=== PATIENT | female | born 1925 | race Caucasian/White ===

== ENCOUNTER 2016-07-13 09:30 | Day surgery (SDC) | payer MEDICARE, OTHER ==
[~2016-07-13] VITALS: Ht 157.5 cm; Wt 54.4 kg
[~2016-07-13 09:30] MED LIST: DONE10TA42 PO; FOLI20CA PO; NAPR220C11 PO; Sodium Chloride LOK Flush 10 mL Syringe IV PRN; fentaNYL-PF 50 mCg/mL 2 mL Inj IVPUSH PRN
[2016-07-13 10:20] VITALS: PULSE 149; RESP 16; O2SAT 96
[2016-07-13] MEDS: 0.9% Sodium Chloride 1,000 ML IV PRN ×2 (10:29→10:51)
--- NOTE | 2016-07-13 11:24 | PCM.ENDCOL ---
Colonoscopy Date of Service: Jul 13, 2016 Physician Wyatt Strange MD Indication for Procedure Diarrhea Post Procedure Dx & Findings: Diverticula hemorrhoids Procedure Colonoscopy Prep fair Withdrawal 12 minutes PROCEDURE IN DETAIL: After unremarkable rectal examination with this videocolonoscope was inserted into patient's anal canal and advanced to the cecum. Scope further events the terminal ileum. Landmarks are identified including the ileocecal valve and the appendiceal orifice. Terminal ileum showed healthy mucosa with normal healthy- appearing villi. I advanced about 7 cm The mucosa of the cecum, ascending, transverse, descending, sigmoid, rectal mucosa lined with whitish, pink, smooth, glistening, normal-appearing mucosa, normal fine branching, underlying vascularity, normal haustra. The patient tolerated procedure and was transported to observation area. Random biopsies were obtained using cold forceps from cecum to the rectum. A spot in the descending colon bled persistently after a biopsy. Hemostatic metal clip deployed and bleeding stopped. Multiple diverticuli noted small to large mostly in the sigmoid colon. Beyond the sigmoid colon, diverticuli were scattered into the ascending colon. In the rectum retroflexion was done which showed hemorrhoids and anal canal was inspected carefully and the way out and hemorrhoids noted. Impression Diarrhea Normal terminal ileum Recommendation Await biopsy result Follow up in GI clinic Presedation Assessment Risks and Benefits Informed consent was obtained from the patient after all risks and benefits including but not limited to drug reaction, infection, pain, bleeding, perforation, as well as alternatives were discussed. Patient monitoring Continuous pulse oximetry, cardiac monitoring, blood pressure monitoring, IV access, and oxygen at 2L per nasal cannula. Periprocedural Fentanyl: Fentanyl 75mcg Incrementally Midazolam: Midazolam 3mg Incrementally Complications There were no periprocedural complications identified. Post Procedure Plan Post Procedure Recommendations 1. Restrict activities today. 2. Resume normal activities in the morning. 3. Resume medications. 4. Patient informed of normal post procedure side effects as bloating, drowsiness, blood streaking in the stool. 5. average risk CRCS. If colon polyps come back as: -Hyperplastic- can repeat colonoscopy in 10 years -Tubular adenoma- repeat colonoscopy in 5 years -Tubulovillous/villous adenoma- repeat colonoscopy in 3 years -If any dysplasia- return to clinic as soon as possible 6. Please don't hesitate to call me with any questions. Wyatt Strange MD Jul 13, 2016 11:24
[2016-07-13 11:25] VITALS: BP 158/85; PULSE 70; RESP 16; O2SAT 91
[2016-07-13 11:35] VITALS: BP 138/76; PULSE 56; PULSE 60; RESP 16; O2SAT 98; O2SAT 99
[2016-07-13 11:45] VITALS: BP 131/76; PULSE 59; RESP 16; O2SAT 95
--- NOTE | 2016-07-14 12:03 | PATH ---
SURGICAL PATHOLOGY Attending Physician:Wyatt Strange M.D. CASE STATUS: Signed Out PATIENT NAME: JULIA STYLES PID: [id number] : 1925 DATE COLLECTED:07/13/2016 20:19 SPECIMEN: Colon, Biopsy CLINICAL HISTORY: 1). RANDOM COLON BIOPSIES FINAL DIAGNOSIS: 1.RANDOM COLON BIOPSIES: COLONIC MUCOSA WITH NO DIAGNOSTIC ALTERATIONS. NEGATIVE FOR INFLAMMATION, DYSPLASIA AND MALIGNANCY. 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 Histologic changes of melanosis coli are not present in the current biopsies. GROSS DESCRIPTION: The specimen is received in one formalin filled container labeled with the patient's name, sublabeled "random colon" and consists of multiple fragments of tissue which aggregate to 0.6 x 0.6 x 0.3 CM. The specimen is entirely submitted in one cassette. 07/13/2016 [facility] MICRO DESCRIPTION: See diagnosis. ICD-9 CODES: CPT CODES: 1: 93684 Electronically Signed Out Gale Zuñiga MD [facility] [address], [place] [address] Technical component performed at [facility], [address] [place] [address] Ave[address], [place], [address]
[2016-11-06] MEDS ORDERED: RIFA550T3 PO (11:44)
== END 2016-07-13 23:59 | disposition home or self-care (01) ==
LOC: END 09:30
PROVIDERS: ATTEND Internal Medicine
DX: R19.7 Diarrhea, unspecified (principal); K57.30 Diverticulosis of large intestine without perforation or abscess without bleeding; K64.8 Other hemorrhoids; J45.909 Unspecified asthma, uncomplicated; I10 Essential (primary) hypertension; Z87.891 Personal history of nicotine dependence
CPT/HCPCS: 45380; J2250; J7030

== ENCOUNTER 2016-11-09 09:50 | Day surgery (SDC) | payer MEDICARE, OTHER ==
[~2016-11-09] VITALS: Ht 154.9 cm; Wt 50.0 kg
[~2016-11-09 09:50] MED LIST changes: +0.9% Sodium Chloride 1,000 ML IV SCH; +RIFA550T3 PO
[2016-11-09 10:43] VITALS: BP 134/95; PULSE 55; RESP 16; O2SAT 98
[2016-11-09] MEDS ORDERED: LISI-567 PO (10:46)
--- NOTE | 2016-11-09 12:06 | PCM.ENDEGD ---
EGD Date of Service: November 09, 2016 Physician Wyatt Strange MD Pre Procedure Diagnosis: Diarrhea Post Procedure Dx & Findings: Rule out celiac and gastritis Procedure Esophagogastroduodenoscopy PROCEDURE IN DETAIL: After proper sedation, Olympus video endoscope was inserted into patient's mouth and esophagus was successfully intubated. Scope introduced esophagus. Esophagus showed normal shiny whitish mucosa consistent with squamous cell component. Z line was intact at 39 cm from the incisors. Scope further advanced to the stomach. Stomach showed atrophic rugae folds with some atrophy in the antrum as well as some redness. Abscesses obtained. Cardia fundus body antrum pylorus were all visualized. Retroflexion was done. Stomach was easily inflated and deflatable using air. Scope further events to the distal duodenum. Duodenum revealed normal villous structures with normal appearing folds without any mass ulcer erosion. 5 biopsies obtained to rule out celiac disease. Impression Gastritis Normal-appearing duodenum Recommendation Follow up in GI clinic Presedation Assessment Risks and Benefits Informed consent was obtained from the patient after all risks and benefits including but not limited to drug reaction, infection, pain, bleeding, perforation, as well as alternatives were discussed. Patient monitoring Continuous pulse oximetry, cardiac monitoring, blood pressure monitoring, IV access, and oxygen at 2L per nasal cannula. Periprocedural Fentanyl: Fentanyl 25mcg Midazolam: Midazolam 1mg Incrementally Complications There were no periprocedural complications identified. Post Procedure Plan Post Procedure Recommendations 1. Restrict activities today. 2. Resume normal activities in the morning. 3. Resume medications. 4. GERD behavioral modification: - Avoid fatty, acidic, spicy, large meals - Do not lie down after meals - Do not eat or drink anything for at least 2 1/2 hours before going to bed at night - Discontinue tobacco and alcohol - Decrease or avoid caffeine - Avoid chocolate and mints - Decrease weight - Avoid aspirin and non steroidal anti-inflammatory agents (NSAID) such as Aleve, Advil, Mobic, Naproxen, Ibuprofen, etc 5. Add proton pump inhibitor. Take 30 minutes before 1st meal of the day. 6. Patient informed of normal post procedure side effects as bloating, drowsiness, blood streaking in the stool 7. If gastric biopsy reveal H.pylori, continue with appropriate treatment 8. If small bowel biopsy reveals celiac, continue with appropriate treatment 9. Please don't hesitate to call me with any questions Wyatt Strange MD November 09, 2016 12:06
[2016-11-09 12:14] VITALS: BP 145/83; PULSE 58; RESP 16; O2SAT 99
[2016-11-09 12:24] VITALS: BP 131/77; PULSE 56; RESP 16; O2SAT 99
--- NOTE | 2016-11-10 10:27 | PATH ---
SURGICAL PATHOLOGY Attending Physician:Wyatt Strange M.D. CASE STATUS: Signed Out PATIENT NAME: JULIA STYLES PID: [id number] : 1925 DATE COLLECTED:11/09/2016 20:21 SPECIMEN: 1: Gastric, Biopsy 2: Duodenum, Biopsy CLINICAL HISTORY: DIARRHEA GASTRITIS 1). GASTRIC BIOPSIES 2). DUODENAL BIOPSIES (R/O CELIAC) FINAL DIAGNOSIS: 1.GASTRIC BIOPSIES: MILD CHRONIC GASTRITIS INVOLVING ANTRAL AND FUNDIC MUCOSA. Negative for evidence of Helicobacter. Negative for intestinal metaplasia. Negative for dysplasia and malignancy. 2.DUODENAL BIOPSIES: FRAGMENTS OF NORMAL-APPEARING DUODENUM MUCOSA. Normal delicate mucosal villi present. Negative for significant inflammation, dysplasia and malignancy. ICD10 CODE K29.70 GROSS DESCRIPTION: The specimen is received in two formalin filled containers labeled with the patient's name. 1). The specimen is sublabeled "gastric" and consists of 2 portions of tissue which aggregate to 0.3 x 0.3 x 0.2 CM. The specimen is entirely submitted in cassette 1A. 2). The specimen is sublabeled "duodenal" and consists of 2 portions of tissue which aggregate to 0.3 x 0.2 x 0.2 CM. The specimen is entirely submitted in cassette 2A. 11/09/2016 [facility] MICRO DESCRIPTION: See diagnosis. ICD-9 CODES: CPT CODES: 1: 99079 2: 85408 Electronically Signed Out Jordan Mensah MD [facility] [address] [facility], [place] [address] Technical component performed at [facility], [address] [place] [address] Ave[address], [place], [address]
== END 2016-11-09 23:59 | disposition home or self-care (01) ==
LOC: END 09:50
PROVIDERS: ATTEND Internal Medicine
DX: K29.50 Unspecified chronic gastritis without bleeding (principal)
CPT/HCPCS: 43239; 88305; G0500; J2250; J3010; J7030